=== PATIENT | male | born 1955 | race Caucasian/White ===

== ENCOUNTER 2021-01-07 11:54 | Day surgery (SDC) | payer OTHER, BC ==
[2021-01-05 11:27] VITALS: BMI 28.5
[2021-01-07 13:15] VITALS: TEMP 97.8
[2021-01-07 13:39] VITALS: BP 112/78; PULSE 77
== END 2021-01-07 13:39 | disposition home or self-care (01) ==
LOC: FASU-ENDO 11:54
PROVIDERS: ATTEND Internal Medicine Gastroenterology
PROC: 0DB68ZX Excision of Stomach, Via Natural or Artificial Opening Endoscopic, Diagnostic (ICD-10-PCS; 2021-01-07)
PROC: 0DB48ZX Excision of Esophagogastric Junction, Via Natural or Artificial Opening Endoscopic, Diagnostic (ICD-10-PCS; 2021-01-07)
PROC: 0DB98ZX Excision of Duodenum, Via Natural or Artificial Opening Endoscopic, Diagnostic (ICD-10-PCS; principal; 2021-01-07 12:50)
DX: K29.50 Unspecified chronic gastritis without bleeding (principal); K21.00 Gastro-esophageal reflux disease with esophagitis, without bleeding; K44.9 Diaphragmatic hernia without obstruction or gangrene; Z87.19 Personal history of other diseases of the digestive system; R10.13 Epigastric pain
CPT/HCPCS: 88305-TC; 88342-TC

== ENCOUNTER 2021-03-24 18:10 | Emergency (ER) | payer OTHER, BC ==
[2021-03-24 18:23] VITALS: BMI 28.5
[2021-03-24] MEDS ORDERED: ACETAMINOPHEN 500 MG TABLET (FP) PO ONE (18:34)
[2021-03-24] MEDS ORDERED: CASIRIVIMAB/IMDEVIMAB 10 ML in SODIUM CHLORIDE 100 ML IVPB ONE (18:34)
[2021-03-24 19:07] LABS: HEMATOCRIT 43.9 % (35.4-49); HEMOGLOBIN 14.8 GM/dL (11.7-16.9); MCHC 33.7 g/dl (32.0-35.9); MEAN PLT VOLUME 6.9 fl (7.5-11.1); PLATELET COUNT 220 10^3/uL (134-434); RBC 4.63 M/mm3 (4.00-5.60); RDW 13.8 % (11.9-15.9); WHITE BLOOD COUNT 4.8 K/mm3 (4.0-10.0)
[2021-03-24 19:34] LABS: BLOOD UREA NITROGEN 14.8 mg/dL (7-18)
[2021-03-24 19:38] LABS: CREATININE 1.1 mg/dL (0.55-1.3)
[2021-03-24 20:10] VITALS: PULSE 82
[2021-03-24 21:21] VITALS: BP 136/76; TEMP 98.6
== END 2021-03-24 21:23 | disposition home or self-care (01) ==
LOC: JER 18:10
DX: U07.1 COVID-19 (principal)
CPT/HCPCS: 36415; 80048; 85027; 99284-25; Q0240

== ENCOUNTER 2022-07-18 08:16 | Day surgery (SDC) | payer OTHER, BC ==
[2022-07-12 13:42] VITALS: BMI 28.0
[2022-07-18 10:07] VITALS: TEMP 98
[2022-07-18 10:28] VITALS: BP 110/65; PULSE 69; RESP 18
== END 2022-07-18 10:50 | disposition home or self-care (01) ==
LOC: FASU-ENDO 08:16
PROVIDERS: ATTEND Internal Medicine Gastroenterology
PROC: 0DB68ZX Excision of Stomach, Via Natural or Artificial Opening Endoscopic, Diagnostic (ICD-10-PCS; 2022-07-18)
PROC: 0DB58ZX Excision of Esophagus, Via Natural or Artificial Opening Endoscopic, Diagnostic (ICD-10-PCS; 2022-07-18)
PROC: 0DB98ZX Excision of Duodenum, Via Natural or Artificial Opening Endoscopic, Diagnostic (ICD-10-PCS; principal; 2022-07-18 09:39)
DX: K29.50 Unspecified chronic gastritis without bleeding (principal); K21.00 Gastro-esophageal reflux disease with esophagitis, without bleeding; R10.13 Epigastric pain; Z87.19 Personal history of other diseases of the digestive system
CPT/HCPCS: 88305-TC; 88342-TC

== ENCOUNTER 2024-02-12 11:03 | Day surgery (SDC) | payer OTHER, BC ==
[2024-02-06 14:50] VITALS: BMI 28.5
[2024-02-12 13:12] VITALS: BP 110/64; PULSE 71; RESP 16; TEMP 97.3
== END 2024-02-12 13:00 | disposition home or self-care (01) ==
LOC: FASU-ENDO 11:03
PROVIDERS: ATTEND Internal Medicine Gastroenterology
PROC: 0DBK8ZX Excision of Ascending Colon, Via Natural or Artificial Opening Endoscopic, Diagnostic (ICD-10-PCS; principal; 2024-02-12 11:43)
DX: Z12.11 Encounter for screening for malignant neoplasm of colon (principal); D12.2 Benign neoplasm of ascending colon; D12.3 Benign neoplasm of transverse colon; K64.1 Second degree hemorrhoids; K64.8 Other hemorrhoids; K57.30 Diverticulosis of large intestine without perforation or abscess without bleeding
CPT/HCPCS: 88305-TC